=== PATIENT | female | born 2000 | race Hispanic/Latino ===

== ENCOUNTER 2022-07-12 14:07 | Emergency (ER) | payer OTHER ==
[~2022-07-12] VITALS: Ht 154.9 cm; Wt 77.1 kg
[2022-07-12 14:35] VITALS: O2SAT 98
[2022-07-12] MEDS ORDERED: FAMOTIDINE 20 MG/2 ML VIAL IV ONE (15:29)
[2022-07-12] MEDS ORDERED: KETOROLAC TROMETHAMINE 30 MG/ML VIAL ONE (15:29)
[2022-07-12] MEDS ORDERED: SODIUM CHLORIDE 0.9% 1000ML 1,000 ML ONE (15:29)
[2022-07-12] MEDS ORDERED: ONDANSETRON HCL INJ 2MG/ML 2ML 2 MG/ML VIAL ONE (15:29)
[2022-07-12] MEDS ORDERED: KETOROLAC TROMETHAMINE 30 MG/ML VIAL IV STA (15:42)
[2022-07-12] MEDS ORDERED: ONDANSETRON HCL INJ 2MG/ML 2ML 2 MG/ML VIAL IV STA (15:42)
[2022-07-12] MEDS ORDERED: FAMOTIDINE 20 MG/2 ML VIAL IV STA (15:42)
[2022-07-12] MEDS ORDERED: SODIUM CHLORIDE 0.9% 1000ML 1,000 ML IV ONE (15:45)
[2022-07-12] MEDS ORDERED: NAPROSYN500 MG PO (16:34)
[2022-07-12] MEDS ORDERED: ONDANSETRON ODT4 MG PO (16:35)
== END 2022-07-12 16:57 | disposition home or self-care (01) ==
LOC: FSED 14:15
DX: R10.30 Lower abdominal pain, unspecified (principal); N94.6 Dysmenorrhea, unspecified; K59.00 Constipation, unspecified; N92.6 Irregular menstruation, unspecified; M54.50 Low back pain, unspecified
CPT/HCPCS: 81003; 81025; 99284; J1885; J2405; J7030